=== PATIENT | female | born 1975 | race African-American/Black ===

== ENCOUNTER 2020-04-21 11:30 | Observation (INO) ==
[2020-04-21] MEDS ORDERED: FAMOTIDINE 20 MG/2 ML VIAL IV STA (12:01)
[2020-04-21] MEDS ORDERED: DEXAMETHASONE 4 MG/1 ML VIAL IV STA (12:01)
[2020-04-21] MEDS ORDERED: CETIRIZINE 10 MG TABLET PO STA (12:01)
[2020-04-21] MEDS ORDERED: SODIUM CHLORIDE 0.9% 1,000 ML IV STA (12:04)
[2020-04-21 12:44] LABS: Basophils % 0.2 % (0.0-0.8); Hemoglobin 13.9 GM/DL (12.0-16.0); Immature Granulocytes % 0.4 %; Immature Granulocytes Absolute 0.02 #; Lymphocytes # 1.2 10*3/uL (1.4-4.0); Lymphocytes % 22.9 % (21.3-54.2); Mean Corpuscular HGB Conc 32.3 GM/DL (32-36); Mean Corpuscular Volume 92.3 FL (87-102); Mean Platelet Volume 10.9 FL (9.6-12.0); Monocytes % 9.8 % (1.7-12.7); Neutrophils % 66.7 % (38.7-73.9); Platelet Count 226 T/CUMM (130-400); Red Blood Count 4.66 MC/CUMM (3.8-5.5); Red Cell Distribution Width 13.7 % (9.3-17.3); White Blood Count 5.2 T/CUMM (4-12)
[2020-04-21 12:53] LABS: INR 1.1; PT Patient Result 11.4 SECS (9.8-11.9)
[2020-04-21 13:12] LABS: Albumin 3.4 G/DL (3.4-5.0); Bilirubin,Total 1.3 MG/DL (0.2-1.0); Ferritin 377.8 ng/ml (8-252); Osmolality,Calculated 264.4 MOS/KG (273-304); Total Protein 8.8 G/DL (6.4-8.3)
[2020-04-21] MEDS ORDERED: ONDANSETRON 4 MG/2 ML VIAL IV PRN (14:04)
[2020-04-21] MEDS ORDERED: ACETAMINOPHEN 325 MG TABLET PO PRN (14:04)
[2020-04-21] MEDS ORDERED: DEXTROSE 50% 25 GM/50 ML VIAL IV PRN (14:04)
[2020-04-21] MEDS ORDERED: GLUCAGON 1 MG VIAL IM PRN (14:04)
[2020-04-21 16:44] VITALS: BP 124/81
[2020-04-21] MEDS: BENZONATATE 100 MG CAPSULE PO SCH (20:10)
[2020-04-21] MEDS: ALBUTEROL INHALER 18 GM INH SCH (20:10)
[2020-04-21] MEDS ORDERED: ENOXAPARIN 40 MG/0.4 ML SYRINGE SUBCUT SCH (21:00)
[2020-04-22] MEDS: ALBUTEROL INHALER 18 GM INH SCH ×3 (01:45→12:23)
[2020-04-22 04:35] LABS: Hematocrit 40.8 VOL% (35.7-47.0); Immature Granulocytes % 0.5 %; Immature Granulocytes Absolute 0.02 #; Lymphocytes # 1.6 10*3/uL (1.4-4.0); Lymphocytes % 37.9 % (21.3-54.2); Mean Corpuscular HGB Conc 31.9 GM/DL (32-36); Mean Corpuscular Volume 94.7 FL (87-102); Mean Platelet Volume 11.3 FL (9.6-12.0); Monocytes % 15.9 % (1.7-12.7); Neutrophils % 45.7 % (38.7-73.9); Platelet Count 233 T/CUMM (130-400); Red Blood Count 4.31 MC/CUMM (3.8-5.5); Red Cell Distribution Width 13.7 % (9.3-17.3); White Blood Count 4.3 T/CUMM (4-12)
[2020-04-22 04:44] LABS: Hypochromasia 1+; Lymphocytes 30 % (20-55); Microcytosis 1+; Platelet Estimate Adequate; Segmented Neutrophils 55 % (50-85); Total Cells Counted 100
[2020-04-22 04:53] LABS: Albumin 3.2 G/DL (3.4-5.0); Bilirubin,Total 1.2 MG/DL (0.2-1.0); Calcium 8.8 MG/DL (8.5-10.1); Ferritin 389.6 ng/ml (8-252); Osmolality,Calculated 272.7 MOS/KG (273-304); Total Protein 8.2 G/DL (6.4-8.3)
[2020-04-22 04:58] LABS: Thyroid Stimulating Hormone 0.762 uIU/ml (0.358-3.74)
[2020-04-22 06:14] LABS: Sedimentation Rate-Westergren 28 MM/HR (0-20)
[2020-04-22] MEDS: BENZONATATE 100 MG CAPSULE PO SCH (08:09)
[2020-04-22] MEDS ORDERED: INFLUENZA VIRUS VACCINE 0.5 ML SYRINGE IM ONE (09:00)
[2020-04-22] MEDS ORDERED: PANTOPRAZOLE 40 MG TABLET PO SCH (09:00)
[2020-04-22] MEDS ORDERED: DEXAMETHASONE 4 MG TABLET PO SCH (09:00)
== END 2020-04-22 20:00 | disposition home or self-care (01) ==
LOC: N.EDINP 11:30 → N.ED 11:30 → N.CC 15:45
PROVIDERS: ADMIT Internal Medicine; ATTEND Internal Medicine